=== PATIENT | male | born 1960 | race American Indian/Alaskan Native ===

== ENCOUNTER 2023-12-12 09:35 | Day surgery (SDC) | payer MEDICARE, MEDICAID ==
[~2023-12-12] VITALS: Ht 175.3 cm; Wt 93.4 kg
[2023-12-12] VITALS (9 sets, daily range): BP systolic 164–180; BP diastolic 58–81; PULSE 52–58; RESP 12–17; TEMP 98; O2SAT 17–99
[2023-12-12] MEDS ORDERED: TIRZ5PEN (10:23)
[2023-12-12] MEDS ORDERED: OLME20TA69 PO (10:23)
[2023-12-12] MEDS ORDERED: TORS5TAB11 (10:23)
[2023-12-12] MEDS ORDERED: HYDR50TA46 (10:23)
[2023-12-12] MEDS ORDERED: AMLO5TAB16 PO (10:23)
[2023-12-12] MEDS ORDERED: LANTUS SQ (10:23)
[2023-12-12] MEDS ORDERED: ASPI-1264 PO (10:23)
[2023-12-12] MEDS ORDERED: CHOL500050 PO (10:23)
[2023-12-12] MEDS ORDERED: METO-395 PO (10:23)
[2023-12-12] MEDS ORDERED: CLON1PAT15 TOP (10:23)
[2023-12-12] MEDS ORDERED: POLY119P2 PO (10:23)
[2023-12-12] MEDS ORDERED: VITA1CAP PO (10:23)
[2023-12-12] MEDS ORDERED: BUPR-561 PO (10:23)
[2023-12-12] MEDS ORDERED: ATOR40TA72 PO (10:23)
[2023-12-12] MEDS ORDERED: ACET600C5 PO (10:23)
[2023-12-12 10:25] LABS: BASOPHILS # (AUTO) 0.1 X10'3 (0-0.2); BASOPHILS % (AUTO) 1.1 % (0-1); EOSINOPHILS # (AUTO) 0.1 X10'3 (0-0.9); EOSINOPHILS % (AUTO) 1.9 % (0-6); HEMATOCRIT 32.3 % (42.0-52.0); HEMOGLOBIN 10.6 g/dl (14.0-17.9); LYMPHOCYTES % (AUTO) 16.5 % (21-51); MEAN CORPUSCULAR HEMOGLOBIN 28.1 PG (27.0-31.0); MEAN CORPUSCULAR HGB CONC 32.7 g/dL (33.0-36.5); MEAN CORPUSCULAR VOLUME 85.9 FL (78-98); MEAN PLATELET VOLUME 7.6 FL (7.4-10.4); MONOCYTES # (AUTO) 0.5 X10'3 (0-0.9); MONOCYTES % (AUTO) 7.8 % (2-12); NEUTROPHILS # (AUTO) 4.4 X10'3 (1.8-7.7); NEUTROPHILS % (AUTO) 72.7 % (42-75); PLATELET COUNT 185 X10'3 (140-440); RED BLOOD COUNT 3.76 X10'6 (4.70-6.10); RED CELL DISTRIBUTION WIDTH 16.4 % (11.5-14.5)
[2023-12-12 10:38] LABS: PROTHROMBIN TIME 10.6 SECONDS (9.0-12.0)
[2023-12-12 10:41] LABS: ALBUMIN 2.9 G/DL (3.4-5.0); ANION GAP 11 (8-16); BLOOD UREA NITROGEN 69 MG/DL (7-18); BUN/CREATININE RATIO 9.9 (10.0-20.0); CALCIUM 8.2 MG/DL (8.5-10.1); CHLORIDE 102 MMOL/L (99-107); CHOL/HDL RATIO 2.8 (0.00-4.99); CHOLESTEROL 154 MG/DL (0-200); CREATININE 6.94 MG/DL (0.60-1.10); GLUCOSE 230 MG/DL (70-104); HDL CHOLESTEROL 55 MG/DL (35-60); LDL CHOLESTEROL 78 MG/DL (50-100); POTASSIUM 4.7 MMOL/L (3.5-5.1); SODIUM 137 MMOL/L (135-145); TOTAL CARBON DIOXIDE 24.5 MMOL/L (24-32); TRIGLYCERIDES 92 MG/DL (20-135); eGFR 8 ML/MIN
[2023-12-12] MEDS ORDERED: heparin 1,000unit/ml 10ml vial 10 ML ONE (11:38)
[2023-12-12] MEDS ORDERED: LIDOcaine 1% (10mg/ml) 2ml vial ONE (11:38)
[2023-12-12] MEDS ORDERED: fentaNYL/PF 50MCG/1 ML 2ML syringe ONE (11:38)
[2023-12-12] MEDS ORDERED: verapamil 2.5 mg/ml inj IV ONE (11:38)
[2023-12-12] MEDS ORDERED: iohexol 350MG/ML 100ml bottle IV ONE (11:38)
[2023-12-12] MEDS ORDERED: midazolam 1 mg/ML 2ml injection ONE ×2 (11:38→13:00)
[2023-12-12] MEDS ORDERED: nitroGLYCERIN 500mcg/5mL D5W 5 ML IV ONE (11:39)
[2023-12-12] MEDS: normal saline 1,000 ML IV SCH (12:17)
[2023-12-12] MEDS: LORazepam 0.5 MG tablet PO PRN (12:17)
[2023-12-12] MEDS: diphenhydrAMINE 25mg capsule PO PRN (12:17)
[2023-12-12] MEDS ORDERED: HYDROcodone/acetaminophen 10/325mg tab PO PRN (14:35)
[2023-12-12] MEDS ORDERED: ondansetron/PF 4mg/2ml inj IV PRN (14:35)
[2023-12-12] MEDS ORDERED: OXAZEpam 15mg capsule PO PRN (14:35)
[2023-12-12] MEDS ORDERED: HYDROcodone/acetaminophen 5mg/325mg tablet PO PRN (14:35)
[2023-12-12] MEDS ORDERED: proCHLORperazine 10 MG/2 ml inj IV PRN (14:35)
== END 2023-12-12 16:30 | disposition home or self-care (01) ==
LOC: SSTAY O 09:35
PROVIDERS: ATTEND Internal Medicine Interventional Cardiology
DX: I12.9 Hypertensive chronic kidney disease with stage 1 through stage 4 chronic kidney disease, or unspecified chronic kidney disease (principal); E11.22 Type 2 diabetes mellitus with diabetic chronic kidney disease; N18.9 Chronic kidney disease, unspecified; I25.10 Atherosclerotic heart disease of native coronary artery without angina pectoris; R94.31 Abnormal electrocardiogram [ECG] [EKG]; E78.00 Pure hypercholesterolemia, unspecified; Z79.82 Long term (current) use of aspirin; Z79.899 Other long term (current) drug therapy; Z88.8 Allergy status to other drugs, medicaments and biological substances
CPT/HCPCS: 36415; 80048; 80061; 85025; 85610; 93005; 93458; 99152; A6258; A6402; C1894; J1644; J2003; J2250; J3010; J3490; J7030; Q0163; Q9967; Z7610; 99153; A6449